=== PATIENT | male | born 1965 | race Caucasian/White ===

== ENCOUNTER 2018-04-27 23:22 | Inpatient (IN) ==
[2018-04-27] MEDS ORDERED: SOLU-MEDROL IV ONE (23:54)
[2018-04-27] MEDS ORDERED: DUONEB (A & A) INH ONE (23:54)
[2018-04-28 00:29] LABS: BASO# 0.02 X1000 (0.0-0.2); BASO% 0.2 % (0.0-0.8); EOS# 0.32 X1000 (0.0-0.7); EOS% 2.5 % (0.0-10.0); HEMATOCRIT 45.2 % (42.0-52.0); HEMOGLOBIN 15.2 g/dL (14.0-18.0); IMM GRAN# 0.06 X1000 (0.0-0.04); IMM GRAN% 0.5 % (0.0-0.5); LYMPH# 0.96 X1000 (1.2-3.4); LYMPH% 7.6 % (20.5-51.1); MCH 30.5 PG (27-31); MCHC 33.6 g/dL (33-37); MCV 90.6 FL (81-99); MONO# 1.77 X1000 (0.11-0.59); MONO% 14.1 % (1.7-9.3); MPV 10.5 FL (7.4-10.4); NEUT# 9.44 X1000 (1.4-6.5); NEUT% 75.1 % (42.2-75.2); PLT 167 X1000 (130-400); RBC 4.99 XMIL (4.7-6.1); RDW 13.4 % (11.5-14.5); WBC 12.57 X1000 (4.8-10.8)
[2018-04-28 00:37] LABS: AGAP 13; ALB/GLOB RATIO 1.1; ALBUMIN 3.8 g/dL (3.5-5.0); ALKALINE PHOSPHATASE 74 U/L (32-122); BUN 8 mg/dL (8-22); CALCIUM 8.6 mg/dL (8.8-10.2); CHLORIDE 93 mmol/L (98-107); CK PROFILE 98 U/L (24-204); COSMO 260; CREATININE 0.8 mg/dL (0.7-1.2); ESTIMATED GFR > 60; GLUCOSE 121 mg/dL (70-104); GOT 15 U/L (10-34); GPT 13 U/L (10-44); POTASSIUM 3.8 mmol/L (3.5-5.1); SODIUM 130 mmol/L (136-145); TCO2 24 mmol/L (25-35); TOTAL BILIRUBIN 0.68 mg/dL (0.20-1.00); TOTAL PROTEIN 7.3 g/dL (6.3-8.3)
[2018-04-28 01:22] LABS: ALLEN TEST YES; BE 1.7 mmoll (-3.0-3.0); BLOOD TYPE ARTERIAL; HCO3-(ACT) 25.9 mmoll (20.0-26.0); METHB 0.6 % (0.0-1.5); O2(CT) 18.6 mL/dL (15.0-23.0); PCO2(98.6) 38 mmHg (35-45); SAMPLE BLOOD; SAO2 87.4 % (95.0-100.0); THB 15.6 g/dL (11.5-17.4); pH(98.6) 7.44 (7.35-7.45)
[2018-04-28 01:23] LABS: MODALITY ROOM AIR
[2018-04-28 01:24] LABS: O2HB 85.1 % (95.0-99.0); PO2(98.6) 46 mmHg (60-100)
--- NOTE | 2018-04-28 01:39 | PROVIDER DOCUMENTATION ---
This chart was entered by Bebe Castillo Scribe, acting as scribe for Nikolai Choi MD. HPI-Respiratory General - General Chief Complaint: Shortness of Breath Stated Complaint: SOB Time Seen by Provider: 04/27/18 23:39 Source: patient Allergies/Adverse Reactions: Patient Allergies Allergy/AdvReac Type Severity Reaction Status Date / Time No Known Allergies Allergy Verified 04/27/18 23:49 Home Medications: Home Medication List Medication Instructions Recorded Confirmed Last Taken Type Cyclobenzaprine HCl [Flexeril] 10 mg PO BID 11/17/12 04/28/18 04/27/18 18:00 History Albuterol Sulfate [Ventolin Hfa] 2 puff IH Q4H PRN PRN 02/18/14 04/28/18 17:00 History Hydrocodone/Acetaminophen [[place] 1 each PO TID 02/18/14 04/28/18 04/27/18 20:00 History 10-325 Tablet] Albuterol [Albuterol Neb] 2.5 mg INH BID 04/28/18 04/28/18 04/27/18 21:00 History Gabapentin 400 mg PO TID 04/28/18 04/28/18 04/26/18 History - History of Present Illness-Resp Nature of Presenting Problem: pt is a 52 yr old male presenting via EMS with 3 day complaint of increased shortness of breath, no improvement with breathing treatments. pt admits cough with green sputum. Quality of Pain: reports: none Severity in ED: reports: moderate Onset/Duration: reports: 3 days ago Timing: reports: getting worse Exposure: reports: unknown cause Cough Quality/Degree: reports: moderate, productive cough, sputum (green) Episode Frequency: frequent episodes Current Respiratory Medication Therapy: Initiated A/A nebulizer (no improvement) Modifying Factors: worse with: albuterol nebulizer Associated Symptoms: reports: cough, shortness of breath. denies: flu-like symptoms Similar Symptoms Previously?: Yes Recently seen or treated by another doctor?: Yes Review of Systems - Adult - REVIEW OF SYSTEMS - ADULT Constitutional: denies: chills, fever Eyes: reports: no symptoms reported Ears, Nose, Mouth & Throat: denies: ear pain, sinus problem, throat pain Cardiovascular: denies: chest pain, palpitations, syncope Respiratory: reports: cough, shortness of breath, wheezing Gastrointestinal: denies: diarrhea, vomiting Genitourinary: reports: no symptoms reported Musculoskeletal: reports: no symptoms reported Integumentary: reports: no symptoms reported Neurological: denies: dizziness/vertigo, headache/migraines Psychiatric: reports: no symptoms reported Endocrine: reports: no symptoms reported Hematologic/Lymphatic: reports: no symptoms reported Allergic/Immunologic: reports: no symptoms reported All Other Systems: Reviewed and Negative Past History - Adult - PAST MEDICAL HISTORY-ADULT Review of Records: reports: Old Records Reviewed, Nursing Assessment Review, Medications Reviewed, Social history reviewed & non-contributory. Major Childhood Illnesses: reports: denies history Cardiovascular: reports: denies history Respiratory: reports: asthma, COPD Gastrointestinal: reports: denies history Obstetrical/Gynecological: reports: denies history Genitourinary: reports: denies history Musculoskeletal: reports: fibromyalgia, other (herniated disc, spinal stenosis) Neurological: reports: denies history Psychiatric: reports: anxiety Endocrine/Immune: reports: denies history Other Conditions: reports: denies history - PRIOR SURGERIES/PROCEDURES Surgical/Procedure History: reports: orthopedic (extremity) (shoulder, knee), joint replacement (shoulder Sx), back/neck, other (ACDF) - IMMUNIZATION STATUS Childhood Immunizations: NUTD, See Nurse Assessment Flu Vaccine: See Nurse Assessment - FAMILY HISTORY Family History: reviewed, not pertinent - SOCIAL HISTORY Smoking: cigarettes Provider spent 3-5 mins advising pt. on dangers of tobacco.: Discussed manners to quit use, and f/u contacts for add'l counseling. Substance Use: denies Living Situation: alone Physical Exam-General - PHYSICAL EXAM-ADULT Initial Vital Signs Reviewed: Yes - CONSTITUTIONAL General Appearance: severe distress - EYES Eyes: PERRL/EOMI - HEAD, EARS, NOSE, MOUTH & THROAT HENMT: normocephalic/atraumatic, moist mucous membranes - NECK Neck: non-tender, full range of motion, supple, normal inspection - RESPIRATORY Respiratory: chest non-tender, respiratory distress (moderate), accessory muscle use, rhonchi (wheezing), wheezing (diffuse), prolonged expiration, increased rate - CARDIOVASCULAR Cardiovascular: normal peripheral pulses, tachycardia - GASTROINTESTINAL (ABDOMEN) Abdominal Exam: normal bowel sounds, non tender, soft - LYMPHATIC Lymphatic: no adenopathy - MUSCULOSKELETAL Back Exam: normal inspection, no CVA tenderness, no vertebral tenderness Extremity: normal range of motion, non-tender, normal gait, normal inspection - SKIN Integumentary: normal color, normal turgor, warm/dry - NEUROLOGIC Neurologic: grossly normal, no motor/sensory deficits - PSYCHIATRIC Psych/Mental Status: normal mood/affect, normal thought content, normal thought process, oriented x 3 Progress - PLAN OF CARE/RESULTS Progress/Plan/Lab Results: Vital Signs - 8 hr 04/27/18 23:28 04/27/18 23:30 04/27/18 23:40 Temperature 98.9 F Pulse Rate 104 H Respiratory Rate 28 H Blood Pressure 147/100 O2 Sat by Pulse Oximetry 88 L 90 L 91 L 04/27/18 23:50 04/28/18 00:00 04/28/18 00:02 Temperature Pulse Rate 103 H 103 H 104 H Respiratory Rate 26 H 24 25 H Blood Pressure 150/86 O2 Sat by Pulse Oximetry 93 L 91 L 94 L 04/28/18 00:10 04/28/18 00:20 04/28/18 00:30 Temperature Pulse Rate 102 H 108 H 105 H Respiratory Rate 31 H 26 H 30 H Blood Pressure 134/74 O2 Sat by Pulse Oximetry 93 L 93 L 94 L 04/28/18 00:32 04/28/18 00:53 Temperature Pulse Rate 105 H 99 H Respiratory Rate 27 H 20 Blood Pressure 134/74 O2 Sat by Pulse Oximetry 93 L 93 L 04/28/18 00:27 Influenza Screen - Final Nasopharyngeal Laboratory Results - last 24 hr 04/27/18 04/27/18 04/27/18 23:35 23:35 23:35 WBC 12.57 H RBC 4.99 Hgb 15.2 Hct 45.2 MCV 90.6 MCH 30.5 MCHC 33.6 RDW Std Deviation 13.4 Plt Count 167 MPV 10.5 H Immature Gran % (Auto) 0.5 Neut % (Auto) 75.1 Lymph % (Auto) 7.6 L [place] % (Auto) 14.1 H Eos % (Auto) 2.5 Baso % (Auto) 0.2 Immature Gran # (Auto) 0.06 H Neut # (Auto) 9.44 H Lymph # (Auto) 0.96 L [place] # (Auto) 1.77 H Eos # (Auto) 0.32 Baso # (Auto) 0.02 Specimen Type Sample Site pH pCO2 pO2 HCO3 Base Excess Oxyhemoglobin ABG O2 Sat (Calculated) ABG O2 Saturation ABG Carboxyhemoglobin ABG Methemoglobin Nahid Test A-a O2 Difference Total Hemoglobin Lactate Blood Gas Modality FiO2 % Sodium 130 L Potassium 3.8 Chloride 93 L Carbon Dioxide 24 L Anion Gap 13 BUN 8 Creatinine 0.8 Estimated GFR/1.73 m2 > 60 BUN/Creatinine Ratio 10 Glucose 121 H Calculated Osmolality 260 Calcium 8.6 L Total Bilirubin 0.68 AST 15 ALT 13 Alkaline Phosphatase 74 Creatine Kinase 98 Troponin T Gnj-G-Rmniftyvwfb Pept Total Protein 7.3 Albumin 3.8 Globulin 3.5 Albumin/Globulin Ratio 1.1 Plasma Lactate 0.9 04/27/18 04/27/18 04/28/18 23:35 23:35 00:46 WBC RBC Hgb Hct MCV MCH MCHC RDW Std Deviation Plt Count MPV Immature Gran % (Auto) Neut % (Auto) Lymph % (Auto) [place] % (Auto) Eos % (Auto) Baso % (Auto) Immature Gran # (Auto) Neut # (Auto) Lymph # (Auto) [place] # (Auto) Eos # (Auto) Baso # (Auto) Specimen Type ARTERIAL Sample Site R RADIAL pH 7.44 pCO2 38 pO2 46 L* HCO3 25.9 Base Excess 1.7 Oxyhemoglobin 85.1 L* ABG O2 Sat (Calculated) 18.6 ABG O2 Saturation 87.4 L ABG Carboxyhemoglobin 1.90 ABG Methemoglobin 0.6 Nahid Test YES A-a O2 Difference 56.0 Total Hemoglobin 15.6 Lactate 1.00 Blood Gas Modality ROOM AIR FiO2 % 21.0 Sodium Potassium Chloride Carbon Dioxide Anion Gap BUN Creatinine Estimated GFR/1.73 m2 BUN/Creatinine Ratio Glucose Calculated Osmolality Calcium Total Bilirubin AST ALT Alkaline Phosphatase Creatine Kinase Troponin T < 0.010 Wrv-A-Tbzpcyyaddu Pept 95 Total Protein Albumin Globulin Albumin/Globulin Ratio Plasma Lactate Orders Category Date Time Status CHEST-PORTABLE [RAD] Stat Exams 04/27/18 23:54 Taken ABG [RESP] Routine Lab 04/28/18 00:46 Completed BLOOD CULTURE [BLDCUL] Stat Lab 04/28/18 00:35 Results CBC WITH ELECTRONIC DIFF [HEME] Stat Lab 04/28/18 00:01 Completed CK PROFILE [SP CHEM] Stat Lab 04/28/18 00:01 Completed COMPREHENSIVE METABOLIC PANEL [CHEM] Stat Lab 04/28/18 00:01 Completed INFLUENZA SCREEN A/B Stat Lab 04/28/18 00:27 Completed LACTATE, PLASMA [CHEM] Stat Lab 04/28/18 00:01 Completed PRO B-NATRIURETIC PEPTIDE Stat Lab 04/28/18 00:01 Completed SPUTUM CULTURE WITH GRAM STAIN [RM] Routine Lab 04/28/18 01:17 Ordered TROPONIN T Stat Lab 04/28/18 00:01 Completed Albuterol 2.5MG/Ipratrop 0.5MG [Duoneb (A & A)] Med 04/27/18 23:54 Discontinued 3 ml INH NOW ONE Methylprednisolone Sod Succ [Solu-Medrol] Med 04/27/18 23:54 Discontinued 125 mg IV NOW ONE Aerosol Treatments Routine Oth 04/27/18 23:54 Completed Aerosol Treatments Stat Oth 04/27/18 23:54 Completed Result Diagrams: 04/27/18 23:35 04/27/18 23:35 - EKG 1 Time of EKG reading by physician:: 23:32 EKG Read and Signed by:: Nikolai Choi EKG Interpretation (*Must complete 3 of following elements*): Abnormal Rate: 105 Rhythm: non specific t wave abnormality [place]: normal QRS: normal CO Interval: normal - XRAY 1 XRAY Study: Chest Impression: Abnormal (hyperexpanded lung restrepo; perihilar opacities) - CONSULTS/PCP/HOSPITALIST Notification #1 *Consult/PCP/Hospitalist*: Dr. Gilliland Time Discussed: 01:38 Consult Disposition: Admit Departure - Departure Date of Disposition Decision: 04/28/18 Time of Disposition Decision: 01:39 DIAGNOSIS: COPD exacerbation Acute respiratory failure Qualifiers: Respiratory failure complication: hypoxia Qualified Code(s): J96.01 - Acute respiratory failure with hypoxia Disposition: ADMITTED INPATIENT 09 Certified Medical Emergency: Emergent Condition: Critical Referrals and Follow-Ups: Hero Pablo MD [Primary Care Provider] - - Critical Care Note This patient required my direct & personal management of CC.: Yes Total Time (mins): 45 Critical Care Statement: This patient required my direct personal management to treat or rule out processes, the absence of which, could potentiallly result in sudden, clinically significant life or limb threatening deterioration. Attestation - Physician/ NBA Attestation The physician spent face to face time with patient:: Yes Advanced Practice Provider documentation review:: Supervising physician onsite and consulted in the evaluation and care of this patient. The physician did have a face to face encounter with the patient. This chart was documented by the indicated scribe, (Bebe Castillo Scribe) and accurately reflects the services I performed and decisions made by , Nikolai Choi MD, as attested by the provider's signature.
--- NOTE | 2018-04-28 02:45 | HISTORY AND PHYSICAL ---
PRIMARY CARE PHYSICIAN: Dr. Pablo. CHIEF COMPLAINT: Shortness of breath and cough x3 days. HISTORY OF PRESENTING ILLNESS: A 52-year-old male with a history of COPD and chronic low back pain had presented to emergency department with 3 days history of having cough and shortness of breath. The patient states that the cough was not productive and he was getting more short of breath. He states that he was having difficulty breathing. Subsequently had come to the emergency department. In the ED, he was evaluated. He was started on nebulizer treatment and also put on supplemental oxygen. He had some improvement. However, he continued to have coughing spells and was having difficulty breathing. Due to his presenting symptoms, he will need admission for further management. At the time of my examination, patient had denied any headache, fever, chills, chest pain, hemoptysis, melena or weight changes, but complained of shortness of breath and coughing. PAST MEDICAL HISTORY: COPD and back surgery, chronic back pain. PAST SURGICAL HISTORY: Back surgery. ALLERGIES: No known drug allergies. CURRENT MEDICATIONS: As listed in the medication reconciliation sheet. SOCIAL HISTORY: He is a former smoker. Denies any history of alcohol or illicit drug use. FAMILY HISTORY: No history of coronary artery disease. REVIEW OF SYSTEMS: Fourteen point review of systems as listed in HPI. Other systems negative. PHYSICAL EXAMINATION: GENERAL: Cooperative, friendly male. He is resting more comfortably now. VITAL SIGNS: Temperature 98.2 degrees, pulse 120, respirations 26, blood pressure 126/82. He is saturating 92% on 4 L. HEENT: Atraumatic, normocephalic. Extraocular movements intact. PERRLA. NECK: No masses. CHEST: Rhonchi. CARDIOVASCULAR: Regular rate and rhythm. ABDOMEN: Soft, positive bowel sounds. EXTREMITIES: No edema. NEUROLOGIC: He is awake, alert, oriented x3. GENITOURINARY: No bladder distention. SKIN: Warm. LABORATORIES AND STUDIES: WBC 12.57, hemoglobin 15.2, hematocrit 45.2, platelets 167,000. Sodium 130, potassium 3.8, chloride 93, CO2 is 24, BUN is 8, creatinine 3.4 glucose 121. ASSESSMENT: A 52-year-old male with a history of chronic obstructive pulmonary disease and chronic low back pain that presented to the emergency department with 3 days history of having worsening shortness of breath and cough. He was evaluated in the emergency department. Due to his presenting symptoms, he will need admission for further management. 1. Chronic obstructive pulmonary disease exacerbation. 2. Chronic low back pain. PLAN: 1. We will admit patient to medical floor with telemetry. 2. Continue with DuoNebs, IV Solu-Medrol, and IV antibiotics. 3. Give patient adequate pain control. 4. Put patient on DVT prophylaxis with SCD. 5. Continue to follow, and reassess and make further recommendations based on patient's clinical course. cc: Mehdi Gilliland MD MTDD
--- NOTE | 2018-04-28 05:47 | Diag Imaging Result Doc PS360 ---
EXAM: CHEST-PORTABLE HISTORY: shortness of breath TECHNIQUE: Chest single view COMPARISON: 03/30/2017 FINDINGS: The lungs are hyperexpanded. The heart is not enlarged. The vessels are borderline mildly distended. There are no infiltrates. No effusion identified. There has been surgery to the lower neck IMPRESSION: Emphysema with borderline mild vascular distention. Electronically signed by Schuyler Syed 04/28/2018 5:44 AM
[2018-04-28] MEDS: LEVAQUIN 500 MG/D5W 500 MG/100 ML IVPB IV SCH (06:26)
[2018-04-28] MEDS: SOLU-MEDROL IV SCH ×3 (06:29→20:57)
[2018-04-28] MEDS: DUONEB (A & A) INH SCH ×5 (07:57→23:14)
[2018-04-28] MEDS: NEURONTIN PO SCH ×3 (08:44→17:57)
[2018-04-28] MEDS: FLEXERIL PO SCH ×2 (08:44→20:57)
[2018-04-28] MEDS: NORCO-10 PO SCH ×3 (08:45→17:57)
--- NOTE | 2018-04-28 10:58 | EKG Report ---
Test Performed on : 04/27/2018 11:32:06 PM Test Reason : NO EKG ORDER FOR MUSE Blood Pressure : / mmHG Vent. Rate : 105 BPM Atrial Rate : 105 BPM P-R Int : 130 ms QRS Dur : 098 ms QT Int : 356 ms P-R-T Axes : 078 -20 092 degrees QTc Int : 470 ms Sinus tachycardia. Nonspecific T wave abnormality Abnormal ECG When compared with ECG of 20-APR-2018 17:36, (Unconfirmed) Nonspecific T wave abnormality no longer evident in Inferior leads Nonspecific T wave abnormality, worse in Lateral leads Unconfirmed Result
[2018-04-28] MEDS: MIRALAX PO SCH (15:46)
[2018-04-28] MEDS: DOXYCYCLINE 100 MG in NS 250 ML IV SCH (15:47)
[2018-04-28] MEDS: TUMS PO PRN (22:02)
[2018-04-29] MEDS: DOXYCYCLINE 100 MG in NS 250 ML IV SCH ×2 (01:23→13:03)
[2018-04-29] MEDS: TUMS PO PRN ×3 (01:37→20:08)
--- NOTE | 2018-04-29 01:44 | PULMONOLOGY CONSULTATION ---
DATE: 04/28/2018 REQUESTING PHYSICIAN: Dr. Baker. REASON FOR CONSULTATION: COPD and respiratory failure. HISTORY OF PRESENT ILLNESS: Mr. Miguel is a 52-year-old white male with a greater than 30 pack- year history for tobacco (he has continued to smoke 1 pack per day), who developed increased cough, increased congestion with progressive shortness of breath over the last 7 days. The patient denies fevers or chills. Sputum production is green in character. The patient reports he had asthma as a child, but clinically improved during his teenage years. He has had increased difficulty with his breathing over the last 10-12 years and has been on nebulizers during that time frame. The patient is disabled due to back pain and arthritis. The patient does have difficulty with pollen season, but has never undergone allergy testing. PAST MEDICAL HISTORY/PROBLEM LIST: 1. No known drug allergies. 2. Asthma/COPD with ongoing tobacco use. 3. Spinal fusion. 4. Avascular necrosis of the right hip. 5. Plantar fasciitis. 6. Bilateral knee arthritis. 7. Status post rotator cuff repair. SOCIAL HISTORY: The patient is disabled. Ongoing tobacco abuse as per above. No alcohol use. FAMILY HISTORY: Noncontributory to current presentation. REVIEW OF SYSTEMS: As noted in the HPI, but is otherwise negative. PHYSICAL EXAMINATION: General: Reveals a well-developed, well-nourished male who appears his stated age, in no distress. Vital Signs: BP 140/73, heart rate 84, respiratory rate 18, oxygen saturation 93% on nasal cannula. HEENT: Pupils are equal and reactive. Oropharynx is clear. Neck: Supple. Chest: Reveals diffuse wheezing bilaterally. Cardiac: S1, S2. Abdomen: Soft and without hepatosplenomegaly. Extremities: Without edema. LABORATORY DATA: Chest x-ray reveals hyperinflation with no acute infiltrates. White blood count is 12.57, hemoglobin is 15.2, platelet count is 167,000. No significant eosinophilia. Arterial blood gas in the emergency room, pH 7.44, pCO2 of 38, PO2 of 46. Sodium 130, potassium 3.8, chloride 93, bicarbonate 24, BUN 8, creatinine 0.8. IMPRESSION: The patient is a 52-year-old with asthma/chronic obstructive pulmonary disease overlap syndrome with a chronic obstructive pulmonary disease exacerbation. The patient continues to smoke. The patient has evidence of acute hypoxemic respiratory failure on presentation and continues to require oxygen. It is imperative that the patient stop smoking. RECOMMENDATIONS: 1. Agree with steroids, antibiotics and nebulizer therapy as you are doing for his acute exacerbation. 2. Continue oxygen for hypoxemic respiratory failure. 3. Strongly encourage the importance of smoking cessation at each clinical visit. 4. Recommend initiating an inhaled corticosteroid/long-acting beta agonist at the time of discharge. Symbicort 160/4.5 two puffs twice a day should be adequate for this patient. 5. Recommend outpatient PFT when he clinically is improved. 6. Additional recommendations pending hospital course. cc: Talat Chase MD
[2018-04-29] MEDS: DUONEB (A & A) INH SCH ×7 (03:21→23:23)
[2018-04-29] MEDS: LEVAQUIN 500 MG/D5W 500 MG/100 ML IVPB IV SCH (06:16)
[2018-04-29] MEDS: SOLU-MEDROL IV SCH ×3 (06:17→20:08)
[2018-04-29 07:42] LABS: AGAP 10; BUN 18 mg/dL (8-22); CALCIUM 8.6 mg/dL (8.8-10.2); CHLORIDE 95 mmol/L (98-107); COSMO 278; CREATININE 0.8 mg/dL (0.7-1.2); ESTIMATED GFR > 60; GLUCOSE 168 mg/dL (70-104); POTASSIUM 3.5 mmol/L (3.5-5.1); SODIUM 136 mmol/L (136-145); TCO2 31 mmol/L (25-35)
[2018-04-29 07:49] LABS: BASO# 0.01 X1000 (0.0-0.2); BASO% 0.1 % (0.0-0.8); HEMATOCRIT 40.7 % (42.0-52.0); HEMOGLOBIN 13.8 g/dL (14.0-18.0); IMM GRAN# 0.06 X1000 (0.0-0.04); IMM GRAN% 0.4 % (0.0-0.5); LYMPH# 0.53 X1000 (1.2-3.4); LYMPH% 3.7 % (20.5-51.1); MCH 30.9 PG (27-31); MCHC 33.9 g/dL (33-37); MCV 91.1 FL (81-99); MONO# 0.82 X1000 (0.11-0.59); MONO% 5.8 % (1.7-9.3); MPV 9.7 FL (7.4-10.4); PLT 230 X1000 (130-400); RBC 4.47 XMIL (4.7-6.1); RDW 13.5 % (11.5-14.5); WBC 14.22 X1000 (4.8-10.8)
[2018-04-29 07:50] LABS: BANDS 8 % (0-1); LYMPHS 4 % (21-51); MONO 2 % (1-9); SEGS 84 % (42-75)
[2018-04-29] MEDS: MIRALAX PO SCH (08:10)
[2018-04-29] MEDS: FLEXERIL PO SCH ×2 (08:10→20:08)
[2018-04-29] MEDS: NEURONTIN PO SCH ×3 (08:11→16:23)
[2018-04-29] MEDS: NORCO-10 PO SCH ×3 (08:11→16:22)
--- NOTE | 2018-04-29 12:38 | PROGRESS NOTE ---
DATE: 04/29/2018 SUBJECTIVE: The patient reports feeling better. Less shortness of breath. He reports going to the bathroom without oxygen and not feeling short of breath. OBJECTIVE: Vital signs: Temperature 97.5 degrees, heart rate 79, respiratory rate 18, blood pressure 113/67, O2 saturation 95% on 4 L nasal cannula. General examination: This is a chronically ill-looking, 52-year-old male lying in bed, in no acute distress. HEENT: Head is normocephalic, atraumatic. Neck: No JVD noted. No carotid bruit. Cardiovascular: S1, S2 heard. No murmurs, gallops, or rubs. Regular rate and rhythm. Respiratory: Decreased breath sounds with wheezing noted in both pulmonary bases. The patient is not using any accessory muscles or having work of breathing. Abdomen: Soft. Nontender to palpation. Bowel sounds present. No organomegaly. Extremities: No clubbing, cyanosis, or edema. Peripheral pulses present in both legs. Neurological: Patient is alert and oriented x3. Moves 4 extremities. LABORATORY DATA: White cell count 14.22, hemoglobin 13.8, hematocrit 40.7, platelets 230,000. Normal BMP. ASSESSMENT AND PLAN: 1. Acute respiratory failure secondary to chronic obstructive pulmonary disease exacerbation. At this point, patient continues to require 4 L of oxygen by nasal cannula. The patient is on DuoNeb every 4 hours scheduled. We will continue with the same management. The patient is on IV steroids, in this case it is 80 mg IV q.8 hours. I think at this point we will decrease the dose to 40 mg IV q.8 hours and we will continue with the same management. Currently patient is on levofloxacin and doxycycline. Will continue with the same medication. 2. Chronic low back pain. The patient is on a muscle relaxant, in this case Flexeril and also [place] 10 three times per day. We will continue with the same management. 3. Disposition. We will continue to monitor this patient closely. As soon as this patient starts feeling better without requiring any oxygen supplementation, I think this patient can go. cc: Rajiv Sheppard MD
[2018-04-29] MEDS: SYMBICORT 160/4.5 MICROGM INHALER INH SCH (20:03)
[2018-04-30] MEDS: DOXYCYCLINE 100 MG in NS 250 ML IV SCH (01:41)
[2018-04-30] MEDS: DUONEB (A & A) INH SCH ×3 (03:24→12:17)
--- NOTE | 2018-04-30 04:10 | PULMONOLOGY PROGRESS NOTE ---
DATE: 04/29/2018 SUBJECTIVE: The patient is awake and alert. He reports he is feeling better. He is ambulating some in the room without difficulty. OBJECTIVE: Vital Signs: The patient is afebrile. Blood pressure 117/65, heart rate 79, respiratory rate 18, oxygen saturation 94% on 4 L per nasal cannula. HEENT: Pupils are equal and reactive. Oropharynx is clear. Neck: Supple. Chest: Reveals prolonged expiratory phase with better air flow bilaterally. Cardiac: S1 and S2. Abdomen: Soft without hepatosplenomegaly. Extremities: Without edema. LABORATORIES: Sputum culture currently is growing normal kary. White blood count 14,000, hemoglobin 13.8, platelet count 230,000. IMPRESSION: The patient is a 52-year-old with asthma/chronic obstructive pulmonary disease exacerbation, ongoing tobacco use, acute hypoxemic respiratory failure. Clinically he continues to improve. RECOMMENDATIONS: 1. Initiate Symbicort 160/4.5 two puffs twice a day for patient education and to begin this therapy. 2. Continue steroids, antibiotics and nebulizer treatments. 3. Continue oxygen therapy and evaluate at the time of discharge. 4. Recommend outpatient PFT. 5. Strongly encourage the patient to discontinue tobacco use. cc: Talat Chase MD
[2018-04-30] MEDS: SOLU-MEDROL IV SCH ×2 (05:17→12:05)
[2018-04-30] MEDS: LEVAQUIN 500 MG/D5W 500 MG/100 ML IVPB IV SCH (05:17)
[2018-04-30 08:05] VITALS: BP 137/81
[2018-04-30] MEDS: MIRALAX PO SCH (08:08)
[2018-04-30] MEDS: NEURONTIN PO SCH ×2 (08:09→12:04)
[2018-04-30] MEDS: NORCO-10 PO SCH ×2 (08:09→12:04)
[2018-04-30] MEDS: FLEXERIL PO SCH (08:09)
[2018-04-30] MEDS: SYMBICORT 160/4.5 MICROGM INHALER INH SCH (12:16)
--- NOTE | 2018-05-01 17:30 | DISCHARGE SUMMARY ---
ADMISSION DATE: 04/28/2018 DISCHARGE DATE: 04/30/2018 DISCHARGE DIAGNOSES: 1. Acute respiratory failure, improved. 2. Chronic obstructive pulmonary disease exacerbation, improved. 3. Chronic low back pain. CONSULTATIONS: Dr. Talat Chase from Pulmonary. PROCEDURES: Chest x-ray done on admission showed emphysema with borderline mild vascular distention. HOSPITAL COURSE: This is a 52-year-old male with history of COPD and chronic low back pain who has presented to the emergency department with three-day history of having cough and shortness of breath that was getting worse. He was started in the ER with nebulizer treatment but considering that symptoms did not improve, it was decided to admit this patient for further evaluation and treatment. Here, he was kept on DuoNeb every four hours as scheduled and also he was given IV antibiotics in this case, Levaquin, and also he was placed on IV steroids as well. He started progressing day by day until at time of discharge the patient was able to walk around with oxygen supplementation, but did not get short of breath. So, he is going to be discharged today. Home oxygen is going to be arranged for him. He will be seen by primary care doctor in a week. DISCHARGE PHYSICAL EXAMINATION: Vital Signs: Temperature 97.6, heart rate 92, respiratory rate 21, blood pressure 135/81, and O2 saturation 96% on 4 L nasal cannula. General: This is a 52- year-old male, lying in bed, in no acute distress. HEENT: Head is normocephalic, atraumatic. Cardiovascular: S1 and S2 heard. No murmurs, gallops, or rubs. Regular rate and rhythm. Respiratory: Decreased breath sounds globally with minimal wheezing in both pulmonary bases. The patient is not using any accessory muscles or current work of breathing noted. Abdomen: Soft, nontender to palpation. Bowel sounds present. No organomegaly. Extremities: No clubbing, cyanosis, or edema. Peripheral pulses present in both legs. Neurological: The patient alert and oriented x3. Moves four extremities. DISCHARGE DISPOSITION: Home to self-care. LIST OF MEDICATIONS: 1. Azithromycin one tablet 500 mg p.o. daily for three days. 2. Symbicort 160/4.5 mcg two puffs by inhalation twice daily. 3. Medrol Dosepak 4 mg one tablet p.o. as scheduled. 4. MiraLAX one pack p.o. daily as needed. 5. DuoNeb one inhalation every four hours as needed. 6. Flexeril 10 mg p.o. b.i.d. 7. [place] 10 one tablet p.o. every eight hours as needed. 8. Gabapentin 400 mg tablet p.o. b.i.d. cc: Rajiv Sheppard MD
== END 2018-04-30 13:29 | disposition home or self-care (01) | DRG 189 ==
LOC: SUPCPDRO → ED 23:22 → SUATTDRO 04-28 03:04 → 3N 04-28 03:04
PROVIDERS: ATTEND Internal Medicine
CPT/HCPCS: 71010; 71045; 80048; 80053; 82550; 82805; 83605; 83880; 84484; 85025; 87040; 87070; 87205; 87275; 87276; 87804; 89220; 93005; 94640; 94761; 94799; 96374; 99285; 99291; A9270; J1956; J2920; J2930; J7050

== ENCOUNTER 2019-05-05 22:07 | Inpatient (IN) ==
[2019-05-05] MEDS ORDERED: PULMICORT INH ONE (22:37)
[2019-05-05] MEDS ORDERED: DUONEB (A & A) INH ONE (22:37)
[2019-05-05] MEDS ORDERED: SOLU-MEDROL IV ONE (22:37)
--- NOTE | 2019-05-05 23:17 | PROVIDER DOCUMENTATION ---
This chart was entered by Marivel Cortes Scribe, acting as scribe for Tarah Navas MD. HPI-Respiratory General - General Stated Complaint: SOB Time Seen by Provider: 05/05/19 22:25 Source: patient Allergies/Adverse Reactions: Patient Allergies Allergy/AdvReac Type Severity Reaction Status Date / Time No Known Allergies Allergy Verified 05/03/18 05:07 Home Medications: Home Medication List Medication Instructions Recorded Confirmed Last Taken Type Hydrocodone/Acetaminophen [[place] 1 each PO TID 02/18/14 05/05/19 05/05/19 19:00 History 10-325 Tablet] Gabapentin 400 mg PO TID 04/28/18 05/05/19 05/04/19 21:00 History Albuterol 2.5MG/Ipratrop 0.5MG 3 ml INH Q4H PRN PRN #25 neb 04/30/18 05/05/19 05/02/19 12:00 Rx [Duoneb (A & A)] Albuterol Sulfate [Proair Hfa] 2 inh NEB Q4-6H PRN PRN 05/05/19 05/05/19 05/05/19 22:00 History - History of Present Illness-Resp Nature of Presenting Problem: Pt is a 53 yom who presents to the ED via ems with a cc of sob. Pt states that he has been sob for the past wk. Pt reports intermittent chest tightness, dyspnea on exertion, and diaphoresis. Pt denies any hx of cardiac issues. Pt states that he takes breathing treatments and oxygen at home but he recently ran out of oxygen. EMS reports that the pt was anxious upon their arrival with sats 79-80% on room air. Pt was given treatment via ems quality assurance advisor. Pt reports that he is a smoker. Pt does not present to the ED with any other complaints. Quality of Pain: reports: tightness (chest) Onset/Duration: reports: 1 week ago Timing: reports: still present Exposure: reports: unknown cause Cough Quality/Degree: reports: mild Episode Frequency: frequent episodes Current Respiratory Medication Therapy: Initiated see nurses note, Initiated albuterol Modifying Factors: improves with: exertion (worsens), albuterol nebulizer Associated Symptoms: reports: cough, shortness of breath, wheezing Similar Symptoms Previously?: Yes Recently seen or treated by another doctor?: Yes Review of Systems - Adult - REVIEW OF SYSTEMS - ADULT Constitutional: reports: see HPI, other (diaphoresis) Eyes: reports: no symptoms reported Ears, Nose, Mouth & Throat: reports: no symptoms reported Cardiovascular: reports: no symptoms reported Respiratory: reports: see HPI, cough, dyspnea on exertion, shortness of breath, wheezing Gastrointestinal: reports: no symptoms reported Genitourinary: reports: no symptoms reported Musculoskeletal: reports: no symptoms reported Integumentary: reports: no symptoms reported Neurological: reports: no symptoms reported Psychiatric: reports: no symptoms reported Endocrine: reports: no symptoms reported Hematologic/Lymphatic: reports: no symptoms reported Allergic/Immunologic: reports: no symptoms reported All Other Systems: Reviewed and Negative Past History - Adult - PAST MEDICAL HISTORY-ADULT Review of Records: reports: Old Records Reviewed, Medications Reviewed Major Childhood Illnesses: reports: denies history Cardiovascular: reports: denies history Respiratory: reports: asthma, COPD Gastrointestinal: reports: denies history Obstetrical/Gynecological: reports: denies history Genitourinary: reports: denies history Musculoskeletal: reports: fibromyalgia, other (herniated disc, spinal stenosis) Neurological: reports: denies history Psychiatric: reports: anxiety Endocrine/Immune: reports: denies history Other Conditions: reports: denies history - PRIOR SURGERIES/PROCEDURES Surgical/Procedure History: reports: orthopedic (extremity) (shoulder, knee), joint replacement (shoulder Sx), back/neck, other (ACDF) - IMMUNIZATION STATUS Childhood Immunizations: NUTD, See Nurse Assessment Flu Vaccine: See Nurse Assessment - FAMILY HISTORY Family History: reviewed, not pertinent - SOCIAL HISTORY Smoking: cigarettes, less than 1 pack/day Provider spent 3-5 mins advising pt. on dangers of tobacco.: Discussed manners to quit use, and f/u contacts for add'l counseling. Substance Use: denies Living Situation: family Physical Exam-General - PHYSICAL EXAM-ADULT Initial Vital Signs Reviewed: Yes - CONSTITUTIONAL General Appearance: alert, moderate distress - EYES Eyes: PERRL/EOMI, pink conjunctivae - HEAD, EARS, NOSE, MOUTH & THROAT HENMT: normocephalic/atraumatic - NECK Neck: normal inspection - RESPIRATORY Respiratory: chest non-tender, respiratory distress, decreased breath sounds, accessory muscle use, wheezing (diffused), increased rate, other (SOB). negative: lungs clear, normal breath sounds (tachypnea) - CARDIOVASCULAR Cardiovascular: normal peripheral pulses, no murmur, tachycardia - GASTROINTESTINAL (ABDOMEN) Abdominal Exam: normal bowel sounds, non tender, soft - MUSCULOSKELETAL Back Exam: normal inspection Extremity: normal inspection - SKIN Integumentary: normal color, normal turgor, warm/dry. negative: ecchymosis - NEUROLOGIC Neurologic: grossly normal - PSYCHIATRIC Psych/Mental Status: normal mood/affect, normal thought content, normal thought process, oriented x 3 Progress - PLAN OF CARE/RESULTS Progress/Plan/Lab Results: Vital Signs - 8 hr 05/05/19 22:46 05/05/19 23:03 Temperature 98.3 F Pulse Rate 94 H 100 H Respiratory Rate 22 16 Blood Pressure 117/90 O2 Sat by Pulse Oximetry 93 L 93 L Laboratory Results - last 24 hr 05/05/19 05/05/19 05/05/19 23:08 23:08 23:08 WBC 5.64 RBC 5.11 Hgb 16.1 Hct 48.5 MCV 94.9 MCH 31.5 H MCHC 33.2 RDW Std Deviation 14.1 Plt Count 176 MPV 9.8 Immature Gran % (Auto) 0.0 Neut % (Auto) 58.0 Lymph % (Auto) 27.1 [place] % (Auto) 10.8 H Eos % (Auto) 3.4 Baso % (Auto) 0.7 Immature Gran # (Auto) 0.00 Neut # (Auto) 3.27 Lymph # (Auto) 1.53 [place] # (Auto) 0.61 H Eos # (Auto) 0.19 Baso # (Auto) 0.04 PT INR PTT (Actin FS) Specimen Type Sample Site pH pCO2 pO2 HCO3 Base Excess Oxyhemoglobin ABG O2 Sat (Calculated) ABG O2 Saturation ABG Carboxyhemoglobin ABG Methemoglobin Nahid Test A-a O2 Difference Total Hemoglobin Lactate Liter Flow Blood Gas Modality FiO2 % Sodium 141 Potassium 4.2 Chloride 102 Carbon Dioxide 28 Anion Gap 11 BUN 12 Creatinine 1.3 H Estimated GFR/1.73 m2 58 BUN/Creatinine Ratio 9 Glucose 95 Calculated Osmolality 281 Calcium 9.0 Total Bilirubin 0.30 AST 21 ALT 14 Alkaline Phosphatase 45 Troponin T High Sens Qcz-G-Ckyxahhxlij Pept 191 H Total Protein 6.4 Albumin 4.2 Globulin 2.2 Albumin/Globulin Ratio 1.9 05/05/19 05/05/19 05/05/19 23:08 23:08 23:16 WBC RBC Hgb Hct MCV MCH MCHC RDW Std Deviation Plt Count MPV Immature Gran % (Auto) Neut % (Auto) Lymph % (Auto) [place] % (Auto) Eos % (Auto) Baso % (Auto) Immature Gran # (Auto) Neut # (Auto) Lymph # (Auto) [place] # (Auto) Eos # (Auto) Baso # (Auto) PT 13.0 INR 0.97 PTT (Actin FS) 35.0 Specimen Type ARTERIAL Sample Site R RADIAL pH 7.34 L pCO2 51 H* pO2 69 HCO3 25.2 Base Excess 0.6 Oxyhemoglobin 91.7 L ABG O2 Sat (Calculated) 21.2 ABG O2 Saturation 95.3 ABG Carboxyhemoglobin 2.80 H ABG Methemoglobin 0.9 Nahdi Test YES A-a O2 Difference 124.0 Total Hemoglobin 16.5 Lactate 0.90 Liter Flow 4.0 Blood Gas Modality [place] FiO2 % 36.0 Sodium Potassium Chloride Carbon Dioxide Anion Gap BUN Creatinine Estimated GFR/1.73 m2 BUN/Creatinine Ratio Glucose Calculated Osmolality Calcium Total Bilirubin AST ALT Alkaline Phosphatase Troponin T High Sens 12 Vtl-I-Tgrnmoynfty Pept Total Protein Albumin Globulin Albumin/Globulin Ratio Orders Category Date Time Status Admit - [facility] Routine AdmDCTranf 05/06/19 01:52 Active Bedrest [Activity Type] ORDERED Care 05/06/19 01:54 Active Use Oxygen.Protocol ORDERED Care 05/06/19 01:57 Active Vital Signs Order Q 4-HR ASSESS Care 05/06/19 01:54 Active Regular Diet Diet 05/06/19 01:54 Active CHEST-2 VIEWS [RAD] Stat Exams 05/05/19 22:36 Taken ABG [RESP] Routine Lab 05/05/19 23:16 Completed CBC WITH DIFF [HEME] Stat Lab 05/05/19 23:08 Completed COMPREHENSIVE METABOLIC PANEL [CHEM] Stat Lab 05/05/19 23:08 Completed PRO B-NATRIURETIC PEPTIDE Stat Lab 05/05/19 23:08 Completed PROTIME WITH INR [COAG] Stat Lab 05/05/19 23:08 Completed PTT [COAG] Stat Lab 05/05/19 23:08 Completed TROPONIN T HIGH SENSITIVITY Stat Lab 05/05/19 23:08 Completed 0.9% Sodium Chloride Inj [Ns] 1,000 ml Med 05/06/19 02:00 Active IV 30 mls/hr Albuterol 2.5MG/Ipratrop 0.5MG [Duoneb (A & A)] Med 05/06/19 03:30 Active 3 ml INH RTQ4H Albuterol 2.5MG/Ipratrop 0.5MG [Duoneb (A & A)] Med 05/05/19 22:37 Discontinued 9 ml INH NOW ONE Budesonide [Pulmicort] Med 05/05/19 22:37 Discontinued 1 mg INH NOW ONE Enoxaparin [Lovenox] Med 05/07/19 09:00 Active 40 mg SUBQ Q24H Methylprednisolone Sod Succ [Solu-Medrol] Med 05/05/19 22:37 Discontinued 125 mg IV NOW ONE Methylprednisolone Sod Succ [Solu-Medrol] Med 05/06/19 08:00 Active 60 mg IV Q8H Omeprazole [Prilosec] Med 05/06/19 07:00 Active 40 mg PO DAILY@0700 Aerosol Treatments Routine Oth 05/05/19 22:37 Completed Aerosol Treatments Routine Oth 05/06/19 01:56 Active Aerosol Treatments Stat Oth 05/05/19 22:37 Completed Aerosol Treatments Stat Oth 05/06/19 01:56 Active EKG [EKG] Stat Ther 05/05/19 22:59 Ordered Transfer/Admit Order [TRANSFER] Routine Transfer 05/06/19 01:53 Ordered Patient received multiple breathing treatments in the ED and still at 3L NC at rest was only 92%. Will need admission as patient's O2 is out. Spoke to hospitalist precision assembly inspector who accepted patient for admission. Further orders to be placed by their team. Result Diagrams: 05/05/19 23:08 05/05/19 23:08 - EKG 1 Time of EKG reading by physician:: 23:02 EKG Read and Signed by:: Tarah Navas EKG Interpretation (*Must complete 3 of following elements*): Abnormal Rate: 82 Rhythm: NSR [place]: normal QRS: normal ST Wave: non-specific ST changes - XRAY 1 XRAY Study: Chest (COPD) - CONSULTS/PCP/HOSPITALIST Notification #1 *Consult/PCP/Hospitalist*: Hospitalist Time Discussed: :25 Consult Disposition: Admit Departure - Departure Date of Disposition Decision: 05/06/19 Time of Disposition Decision: 01:30 DIAGNOSIS: COPD exacerbation, Hypoxia, Cigarette smoker Disposition: ADMITTED INPATIENT 09 Certified Medical Emergency: Emergent Condition: Stable Referrals and Follow-Ups: None,PCP [Primary Care Provider] - - Critical Care Note This patient required my direct & personal management of CC.: Yes Total Time (mins): 35 Critical Care Statement: This patient required my direct personal management to treat or rule out processes, the absence of which, could potentiallly result in sudden, clinically significant life or limb threatening deterioration. Attestation - Physician/ NBA Attestation Patient care was provided by Advanced Practice Provider:: No The physician spent face to face time with patient:: Yes Advanced Practice Provider documentation review:: Supervising physician onsite and consulted in the evaluation and care of this patient. The physician did have a face to face encounter with the patient. This chart was documented by the indicated scribe, (Marivel Cortes Scribe) and accurately reflects the services I performed and decisions made by me, Tarah Navas MD, as attested by the provider's signature.
[2019-05-05 23:21] LABS: BASO# 0.04 X1000 (0.0-0.2); BASO% 0.7 % (0.0-0.8); EOS# 0.19 X1000 (0.0-0.7); EOS% 3.4 % (0.0-10.0); HEMATOCRIT 48.5 % (42.0-52.0); HEMOGLOBIN 16.1 g/dL (14.0-18.0); LYMPH# 1.53 X1000 (1.2-3.4); LYMPH% 27.1 % (20.5-51.1); MCH 31.5 PG (27-31); MCHC 33.2 g/dL (33-37); MCV 94.9 FL (81-99); MONO# 0.61 X1000 (0.11-0.59); MONO% 10.8 % (1.7-9.3); MPV 9.8 FL (7.4-10.4); NEUT# 3.27 X1000 (1.4-6.5); PLT 176 X1000 (130-400); RBC 5.11 XMIL (4.7-6.1); RDW 14.1 % (11.5-14.5); WBC 5.64 X1000 (4.8-10.8)
[2019-05-05 23:42] LABS: ALLEN TEST YES; BE 0.6 mmoll (-3.0-3.0); BLOOD TYPE ARTERIAL; HCO3-(ACT) 25.2 mmoll (20.0-26.0); METHB 0.9 % (0.0-1.5); O2(CT) 21.2 mL/dL (15.0-23.0); O2HB 91.7 % (95.0-99.0); PO2(98.6) 69 mmHg (60-100); SAMPLE BLOOD; SAO2 95.3 % (95.0-100.0); THB 16.5 g/dL (11.5-17.4); pH(98.6) 7.34 (7.35-7.45)
[2019-05-05 23:42] LABS: INR 0.97
[2019-05-05 23:43] LABS: MODALITY CANNULA
[2019-05-05 23:44] LABS: PCO2(98.6) 51 mmHg (35-45)
[2019-05-05 23:52] LABS: ALB/GLOB RATIO 1.9; ALBUMIN 4.2 g/dL (3.5-5.0); CREATININE 1.3 mg/dL (0.7-1.2); POTASSIUM 4.2 mmol/L (3.5-5.1); TOTAL BILIRUBIN 0.3 mg/dL (0.20-1.00); TOTAL PROTEIN 6.4 g/dL (6.3-8.3)
[2019-05-06] MEDS ORDERED: NS 1,000 ML IV SCH (02:00)
[2019-05-06] MEDS: DUONEB (A & A) INH SCH ×6 (03:45→23:24)
--- NOTE | 2019-05-06 05:42 | EKG Report ---
Test Performed on : 05/05/2019 11:00:16 PM Test Reason : sob Blood Pressure : / mmHG Vent. Rate : 082 BPM Atrial Rate : 082 BPM P-R Int : 154 ms QRS Dur : 098 ms QT Int : 384 ms P-R-T Axes : 084 067 059 degrees QTc Int : 448 ms Normal sinus rhythm. Cannot rule out Anterior infarct (cited on or before 19-JAN-2019) Abnormal ECG When compared with ECG of 19-JAN-2019 13:59, QRS axis shifted right Nonspecific T wave abnormality no longer evident in Inferior leads Unconfirmed Result
--- NOTE | 2019-05-06 06:23 | Diag Imaging Result Doc PS360 ---
CHEST-2 VIEWS - 05/05/2019 INDICATION: COPD COMPARISON: 01/19/2019 FINDINGS: There is advanced COPD. No infiltrates or edema. No pneumothorax or pleural effusion. Heart size is normal. IMPRESSION: COPD. Electronically signed by Pelon Cornell 05/06/2019 6:21 AM
[2019-05-06] MEDS ORDERED: LEVAQUIN PO SCH (09:00)
--- NOTE | 2019-05-06 09:09 | HISTORY AND PHYSICAL ---
CHIEF COMPLAINT: Worsening shortness of breath. HISTORY OF PRESENT ILLNESS: Mr. Jourdan Miguel is a 51-year-old male who has a history of COPD, as well as long-term tobacco use. He presents to the hospital because of worsening shortness of breath, which has been only for about the last 3 to 4 days. He also describes cough productive of whitish sputum, associated with wheezing. He denies any hemoptysis. The patient smokes about a half a pack of cigarettes per day, and has been doing this for at least 30 years. On presenting to the hospital, x-ray of the chest showed evidence of COPD. The patient will now be admitted to the floor for further management. PAST MEDICAL HISTORY: COPD, as well as chronic back pain. SOCIAL HISTORY: The patient smokes cigarettes and drinks alcohol. ALLERGIES: No known drug allergies. FAMILY HISTORY: Positive for heart disease. PAST SURGICAL HISTORY: He has had back surgery, surgery in both knees, as well as right shoulder. MEDICATIONS: Include the following: Albuterol/ipratropium 3 mL every 4 hours p.r.n., ProAir HFA 2 inhalations every 4 to 6 hours p.r.n., gabapentin 400 mg p.o. 3 times a day, hydrocodone/acetaminophen 10/325 three times a day. REVIEW OF SYSTEMS: Constitutional: No fever. 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 Eyes: Uses glasses. ENT: Has sinus problems. Cardiovascular: Chest pain. Gastrointestinal: Has abdominal pains. No nausea, vomiting, diarrhea. : Has dysuria. Dermatology: No skin lesions. Hematology: No bleeding problems. Musculoskeletal: Has joint pains. Endocrinology: No thyroid disease or diabetes. Psychiatry: Has anxiety with depression. Allergic/Immunologic: Has symptoms suggestive of allergic rhinitis. PHYSICAL EXAMINATION: VITAL SIGNS: Temperature is 98.3 degrees, pulse is 94, respirations 22, blood pressure is 117/90, oxygen saturation is 93%. HEENT: Atraumatic, normocephalic. He is anicteric. Extraocular movements intact. No oral lesions noted. NECK: No lymphadenopathy or thyromegaly. CARDIOVASCULAR: S1, S2. RESPIRATORY: Has rhonchi noted in both lung restrepo. ABDOMEN: Soft. The patient is tender in the right lower quadrant region. No masses felt. EXTREMITIES: No evidence of edema. CENTRAL NERVOUS SYSTEM: No obvious focal deficits noted. IMAGING AND LABORATORY DATA: WBC is 5.64, hematocrit is 48.5, with a platelet count of 176,000. INR is 0.97. ABG 7.34/51/69/95.3%. Sodium is 141, potassium 4.2, chloride is 102, bicarb is 28, BUN is 12, creatinine is 1.3. X-ray of the chest shows evidence of COPD. EKG shows normal sinus rhythm, cannot rule out anterior infarct, nonspecific T-wave abnormalities. ASSESSMENT AND PLAN: 1. Chronic obstructive pulmonary disease exacerbation. Maintain the patient on oxygen supplementation, nebulized bronchodilators, steroids, as well as antibiotics. 2. Acute kidney injury. Maintain the patient on intravenous fluids. Follow up on renal function. Avoid nephrotoxic agents. 3. Right lower quadrant abdominal pains. Will obtain a CT scan of the abdomen and pelvis. 4. Tobacco use history. Recommend nicotine patch. 5. Chronic low back pain. Analgesic as needed. 6. Deep vein thrombosis prophylaxis. Lovenox. 7. Gastrointestinal prophylaxis. Proton pump inhibitor. cc: Yossi Mata MD
[2019-05-06] MEDS: SOLU-MEDROL IV SCH ×2 (09:53→15:50)
[2019-05-06] MEDS: NORCO-10 PO SCH ×3 (09:57→20:49)
[2019-05-06] MEDS: NEURONTIN PO SCH ×3 (09:57→20:49)
[2019-05-06] MEDS: PRILOSEC PO SCH (10:02)
[2019-05-06] MEDS: NS 1,000 ML IV SCH ×2 (10:03→20:49)
[2019-05-06 10:50] LABS: CK INDEX 4.3 (0.0-2.5); CK-MB 9.29 ng/mL (0.0-5.0)
[2019-05-06 12:09] LABS: URINE SOURCE CLEAN CATCH
[2019-05-06 12:22] LABS: BILIRUBIN URINE NEGATIVE (NEGATIVE); BLOOD URINE TRACE (NEGATIVE); COLOR YELLOW; GLUCOSE URINE 500 mg/dL (NEGATIVE); KETONE URINE TRACE mg/dL (NEGATIVE); LEUKOCYTES URINE NEGATIVE (NEGATIVE); NITRITE URINE NEGATIVE (NEGATIVE); PH URINE 5.5; PROTEIN URINE NEGATIVE (NEGATIVE); SP GRAVITY URINE 1.023; TURBIDITY URINE CLEAR (CLEAR); UR EPITHELIAL CELLS <10 /HPF (<10); URINE BACTERIA NEGATIVE /HPF; URINE RBC <10 /HPF (<10); URINE WBC <10 /HPF (<10); UROBILINOGEN URINE NORMAL (NORMAL)
--- NOTE | 2019-05-06 15:20 | Diag Imaging Result Doc PS360 ---
EXAM: CT ABD/PELVIS W/ORAL CONT ONLY 05/06/2019 HISTORY: abdominal pain TECHNIQUE: This exam was performed using automated exposure control, adjustment of mA or kV according to patient size, and/or use of iterative reconstruction technique. COMMENT: There are no previous studies available for comparison. Comparison is made with the previous thoracic study of 03/19/2013 where possible. There is a fibrotic or atelectatic appearing platelike opacity present in the medial posterior right lower lobe around image 24 which was not clearly present previously, otherwise there has been no significant change in the visualized portion of the chest. There are granulomata in the spleen. The stomach is somewhat distended. There are no apparent gallstones. There is no evidence of nephrolithiasis or hydronephrosis. The pancreas and adrenal glands are unremarkable and the spleen is not enlarged. There is some stool present in the colon particularly the descending colon. The aorta is not distended. The second and third portions the duodenum are somewhat distended. Otherwise the small bowel is unremarkable in appearance. Pelvis: There is oral contrast in the ascending colon. The appendix is not distended. The urinary bladder is within normal limits. There is no evidence of free fluid. There is some gas and stool in the rectum. There are postsurgical changes in the lower lumbar spine. No acute bony abnormalities are present. IMPRESSION: Distention of the abdomen and proximal duodenum of uncertain significance. The possibility of gastroparesis cannot be excluded. Mild constipation. Electronically signed by Manuel Sims 05/06/2019 3:18 PM
[2019-05-06 19:32] LABS: CK INDEX 3.6 (0.0-2.5); CK-MB 7.83 ng/mL (0.0-5.0)
[2019-05-06] MEDS ORDERED: DUONEB (A & A) ONE (23:33)
[2019-05-07] MEDS: SOLU-MEDROL IV SCH ×4 (00:05→23:14)
[2019-05-07 00:41] LABS: CK INDEX 3.1 (0.0-2.5); CK-MB 6.49 ng/mL (0.0-5.0)
[2019-05-07] MEDS: DUONEB (A & A) INH SCH ×6 (04:51→23:32)
[2019-05-07 07:23] LABS: HEMATOCRIT 42.1 % (42.0-52.0); HEMOGLOBIN 13.6 g/dL (14.0-18.0); LYMPH# 0.52 X1000 (1.2-3.4); LYMPH% 4.9 % (20.5-51.1); MCH 30.8 PG (27-31); MCHC 32.3 g/dL (33-37); MCV 95.2 FL (81-99); MONO# 0.44 X1000 (0.11-0.59); MONO% 4.2 % (1.7-9.3); MPV 10.3 FL (7.4-10.4); NEUT# 9.62 X1000 (1.4-6.5); NEUT% 90.9 % (42.2-75.2); PLT 170 X1000 (130-400); RBC 4.42 XMIL (4.7-6.1); RDW 14.1 % (11.5-14.5); WBC 10.58 X1000 (4.8-10.8)
[2019-05-07 08:03] LABS: BANDS 3 % (0-1); LYMPHS 6 % (21-51); MONO 1 % (1-9); SEGS 90 % (42-75)
[2019-05-07] MEDS: NORCO-10 PO SCH ×3 (08:10→20:49)
[2019-05-07] MEDS: NEURONTIN PO SCH ×3 (08:10→20:49)
[2019-05-07] MEDS: PRILOSEC PO SCH (08:10)
[2019-05-07 08:18] LABS: AGAP 9; ALBUMIN 3.5 g/dL (3.5-5.0); BUN 14 mg/dL (8-22); CALCIUM 8.7 mg/dL (8.8-10.2); CHLORIDE 104 mmol/L (98-107); COSMO 282; CREATININE 0.8 mg/dL (0.7-1.2); ESTIMATED GFR > 60; GLUCOSE 144 mg/dL (70-104); POTASSIUM 4.2 mmol/L (3.5-5.1); SODIUM 140 mmol/L (136-145); TCO2 27 mmol/L (25-35)
[2019-05-07] MEDS ORDERED: LEVAQUIN 750 MG/D5W 750 MG/150 ML IVPB IV SCH (09:00)
[2019-05-07] MEDS ORDERED: LOVENOX SUBQ SCH (09:00)
[2019-05-07] MEDS ORDERED: SODIUM PHOSPHATE 35 MMOL in NS 250 ML IV ONE (13:30)
--- NOTE | 2019-05-07 13:52 | PROGRESS NOTE ---
DATE: 05/07/2019 SUBJECTIVE: The patient reports breathing better. Abdominal pain is gone. No other issues noted. OBJECTIVE: Vital Signs: Temperature 97.9 degrees, heart rate of 87, respiratory rate 16, blood pressure 152/71, O2 saturation 97% on 3 L nasal cannula. General: This is a 51-year-old male, lying in bed, in no acute distress. Cardiovascular: S1, S2 heard. No murmurs, gallops, or rubs. Regular rate and rhythm. Respiratory: Minimal wheezing. Rhonchi in both pulmonary bases. Patient is not using any accessory muscles or having work of breathing. Abdomen: Soft. Mildly tender to palpation around the periumbilical area but no signs of peritoneal irritation. No organomegaly. Extremities: No clubbing, cyanosis, or edema. Peripheral pulses present in both legs. Neurological: Patient is alert and oriented x3. Moves 4 extremities. LABORATORY DATA: Reviewed. Phosphorus 2.0. ASSESSMENT AND PLAN: 1. Acute respiratory failure secondary to chronic obstructive pulmonary disease exacerbation. We will continue with oxygen supplementation, DuoNeb every 4 hours. Clinically, this patient is feeling better, so we will continue with the same management. 2. Acute kidney injury. The patient has been placed on IV fluids since admission, and that problem is completely resolved now. 3. Abdominal pain. That condition is resolved. There is some abdominal distention but nonspecific. I think to complete a workup for abdominal pain, we will do an abdominal ultrasound. We will see what it shows. 4. Tobacco abuse. Patient has been placed on nicotine patch and advised to stop smoking. 5. Chronic low back pain. The patient is supposed to have back surgery soon. He has been seen by a neurosurgeon. At this point, we will continue with pain medications. 6. Disposition. I think we will monitor this patient closely one more day and if he is feeling okay, we can let him go tomorrow. He is using home O2, 2 to 3 L of oxygen by nasal cannula. cc: Rajiv Sheppard MD
[2019-05-07] MEDS: NS 1,000 ML IV SCH ×2 (18:03→20:49)
[2019-05-08] MEDS: NS 1,000 ML IV SCH (03:17)
[2019-05-08] MEDS: DUONEB (A & A) INH SCH ×2 (04:06→08:16)
[2019-05-08] MEDS: PRILOSEC PO SCH (06:43)
[2019-05-08 07:32] VITALS: BP 116/74
[2019-05-08 07:42] LABS: AGAP 9; ALBUMIN 3.9 g/dL (3.5-5.0); BUN 9 mg/dL (8-22); CALCIUM 9.3 mg/dL (8.8-10.2); CHLORIDE 103 mmol/L (98-107); COSMO 278; CREATININE 0.7 mg/dL (0.7-1.2); ESTIMATED GFR > 60; GLUCOSE 124 mg/dL (70-104); PHOSPHORUS 3.5 mg/dL (2.7-4.5); POTASSIUM 4.5 mmol/L (3.5-5.1); SODIUM 139 mmol/L (136-145); TCO2 27 mmol/L (25-35)
[2019-05-08 07:50] LABS: BASO# 0.01 X1000 (0.0-0.2); BASO% 0.1 % (0.0-0.8); HEMATOCRIT 42.4 % (42.0-52.0); HEMOGLOBIN 13.6 g/dL (14.0-18.0); IMM GRAN# 0.02 X1000 (0.0-0.04); IMM GRAN% 0.2 % (0.0-0.5); LYMPH# 0.58 X1000 (1.2-3.4); LYMPH% 5.6 % (20.5-51.1); MCH 30.9 PG (27-31); MCHC 32.1 g/dL (33-37); MCV 96.4 FL (81-99); MONO# 0.44 X1000 (0.11-0.59); MONO% 4.2 % (1.7-9.3); MPV 10.1 FL (7.4-10.4); NEUT# 9.34 X1000 (1.4-6.5); NEUT% 89.9 % (42.2-75.2); PLT 178 X1000 (130-400); RDW 14.6 % (11.5-14.5); WBC 10.39 X1000 (4.8-10.8)
[2019-05-08 08:34] LABS: BANDS 6 % (0-1); LYMPHS 2 % (21-51); MONO 4 % (1-9); SEGS 86 % (42-75)
[2019-05-08] MEDS: NEURONTIN PO SCH (08:56)
[2019-05-08] MEDS: NORCO-10 PO SCH (08:56)
[2019-05-08] MEDS ORDERED: VENTOLIN HFA INH ONE (09:42)
--- NOTE | 2019-05-09 10:56 | DISCHARGE SUMMARY ---
ADMISSION DATE: 05/06/2019 DISCHARGE DATE: 05/08/2019 DIAGNOSES: 1. Acute respiratory failure secondary to chronic obstructive pulmonary disease exacerbation. 2. Acute kidney injury, resolved. 3. Right lower quadrant pains, resolved. 4. Chronic low back pain. This is stable. 5. Chronic obstructive pulmonary disease with home O2. DIAGNOSTICS: 1. 05/05/2019, chest x-ray revealed COPD. 2. CT of the abdomen and pelvis revealed distention of the abdomen and proximal duodenum of uncertain significance. The possibility of gastroparesis cannot be excluded. Mild constipation. HOSPITAL COURSE: Mr. Miguel presented to the emergency room with increasing shortness of breath. He was found to be in a COPD exacerbation. He was treated with bronchodilators and steroids as well as antibiotics. White count has remained within normal limits. He has remained afebrile. He is breathing better. He denies any shortness of breath. Abdominal pain has resolved. He diet was advanced to a regular diet. He at 100 percent of all meals served. His initial creatinine was 1.3. After hydration, creatinine is 0.8 and 0.7. DISCHARGE PHYSICAL EXAMINATION: Vital signs: Blood pressure is 116/74, heart rate of 86, respirations 20, temperature 98.1 degrees oral with O2 saturations 96 to 97 percent on 3 L nasal cannula. Cardiovascular: Regular rate and rhythm. S1 and S2 appreciated. No rubs or murmurs. Pulmonary: He does have some scant expiratory wheezing with some rhonchi in the bases that mostly clear to cough. Chest rises and falls symmetric with respiration. He has no increased work of breathing. Gastrointestinal: Abdomen is soft, nontender with bowel sounds in all 4 quadrants. Neurologic: He is alert and oriented x3. DISCHARGE MEDICATIONS: 1. Steroid Dosepak, take as directed. 2. Levaquin 750 one p.o. daily x10 days. 3. [place] 10/325 one t.i.d. 4. Gabapentin 400 mg p.o. t.i.d. 5. ProAir inhaler 2 puffs q.4-6 hours p.r.n. wheezing. 6. DuoNeb q.4 hours p.r.n. wheezing. FOLLOWUP: 1. He is to follow up with his primary care provider, Federico Winters. He needs to call in the morning to schedule an appointment to be seen in a week. 2. He has been instructed to call to be seen sooner or return to the ER for any temperature greater than 101 degrees, any chest pain, shortness of breath, any palpitations, any nausea, vomiting, diarrhea, constipation, any black or bloody vomitus or stools, any hematuria, dysuria frequency, urgency or for any questions or concerns that he may have. DISCHARGE DISPOSITION: He is being discharged home in stable condition with family members. TIME SPENT: This is a greater than 30 minute discharge. Dictated by KEYSHA Andrea for Rajiv Sheppard MD Addendum: Patient seen and examined by myself. Agree with KEYSHA note. It reflects my assessment and plan. Patient is being discharged in stable condition. Will be sent home and follow up with PCP in a week. cc: KEYSHA Andrea MD MTDD
== END 2019-05-08 09:53 | disposition home or self-care (01) | DRG 190 ==
LOC: SUPCPDRO → ED 22:07 → SUATTDRO 05-06 03:01 → EDIPHOLD 05-06 03:01 → 4N 05-06 06:55
PROVIDERS: ATTEND Internal Medicine

== ENCOUNTER 2019-06-25 10:22 | Inpatient (IN) ==
[2019-06-25] MEDS ORDERED: SOLU-MEDROL IV ONE (10:57)
[2019-06-25] MEDS ORDERED: ALBUTEROL NEB INH ONE (10:57)
[2019-06-25] MEDS ORDERED: DUONEB (A & A) INH ONE (10:57)
[2019-06-25] MEDS ORDERED: PULMICORT INH ONE (10:57)
[2019-06-25] MEDS ORDERED: ROCEPHIN 1 GM in NS 50 ML IV ONE (10:59)
--- NOTE | 2019-06-25 11:17 | Diag Imaging Result Doc PS360 ---
EXAM: CHEST-PORTABLE 06/25/2019 HISTORY: SOB TECHNIQUE: AP portable upright at 1105 COMMENT: The lungs appear to be clear. The heart and pulmonary vascularity are within normal limits. Compared to 05/05/2019 considering differences in technique there has been no significant change. IMPRESSION: Stable chest. Electronically signed by Manuel Sims 06/25/2019 11:14 AM
[2019-06-25 11:27] LABS: BASO# 0.05 X1000 (0.0-0.2); BASO% 0.7 % (0.0-0.8); EOS# 0.31 X1000 (0.0-0.7); EOS% 4.5 % (0.0-10.0); HEMATOCRIT 48.9 % (42.0-52.0); HEMOGLOBIN 15.5 g/dL (14.0-18.0); LYMPH# 1.87 X1000 (1.2-3.4); LYMPH% 26.9 % (20.5-51.1); MCH 30.8 PG (27-31); MCHC 31.7 g/dL (33-37); MONO# 0.66 X1000 (0.11-0.59); MONO% 9.5 % (1.7-9.3); MPV 9.8 FL (7.4-10.4); NEUT# 4.05 X1000 (1.4-6.5); NEUT% 58.4 % (42.2-75.2); PLT 182 X1000 (130-400); RBC 5.04 XMIL (4.7-6.1); RDW 14.3 % (11.5-14.5); WBC 6.94 X1000 (4.8-10.8)
[2019-06-25 11:35] LABS: INR 0.94; PROTIME 12.6 Seconds (11.0-16.0)
[2019-06-25 11:36] LABS: PTT 30.7 Seconds (22.3-41.8)
[2019-06-25 11:50] LABS: ALB/GLOB RATIO 1.6; ALBUMIN 4.1 g/dL (3.5-5.0); CALCIUM 8.9 mg/dL (8.8-10.2); CREATININE 1.3 mg/dL (0.7-1.2); POTASSIUM 4.7 mmol/L (3.5-5.1); TOTAL BILIRUBIN 0.22 mg/dL (0.20-1.00); TOTAL PROTEIN 6.7 g/dL (6.3-8.3)
[2019-06-25 12:11] LABS: CK INDEX 2.9 (0.0-2.5); CK-MB 7.96 ng/mL (0.0-5.0)
--- NOTE | 2019-06-25 13:37 | PROVIDER DOCUMENTATION ---
This chart was entered by Heather Ramos Scribe, acting as scribe for Dashawn Aguiar MD. HPI-Respiratory General - General Stated Complaint: SOB Time Seen by Provider: 06/25/19 10:50 Source: patient Allergies/Adverse Reactions: Patient Allergies Allergy/AdvReac Type Severity Reaction Status Date / Time No Known Allergies Allergy Verified 06/25/19 11:25 Home Medications: Home Medication List Medication Instructions Recorded Confirmed Last Taken Type Hydrocodone/Acetaminophen [[place] 1 each PO TID 02/18/14 05/05/19 05/05/19 19:00 History 10-325 Tablet] Gabapentin 400 mg PO TID 04/28/18 05/05/19 05/04/19 21:00 History Albuterol Sulfate [Proair Hfa] 2 inh NEB Q4-6H PRN PRN 05/05/19 05/05/19 05/05/19 22:00 History Albuterol 2.5MG/Ipratrop 0.5MG 3 ml INH Q4H PRN PRN #60 neb 05/08/19 Unknown Rx [Duoneb (A & A)] Levofloxacin 750 mg PO DAILY #10 tab 05/08/19 Unknown Rx Methylprednisolone [Medrol Dosepak] 4 mg PO DIRECTED #1 pkg 05/08/19 Unknown Rx - History of Present Illness-Resp Nature of Presenting Problem: 53 yowm presents to the ed via ems with c/o worsening sob for 4 days. pt presents with a NRB on but removes when ems leaves the room. pt sts has O2 at home and uses when needed at 3 LPM via NC. pt has hx of copd and asthma and sts cold sx. pt has had intermittent chest pain with sob and sts episodes are 2 minutes in length. pt has no PCP Quality of Pain: reports: fullness Severity in ED: reports: moderate Onset/Duration: reports: 4 days ago Timing: reports: still present, intermittent Context: reports: recent URI Exposure: reports: unknown cause Cough Quality/Degree: reports: mild, dry cough Episode Frequency: frequent episodes Current Respiratory Medication Therapy: Initiated see nurses note Modifying Factors: improves with: oxygen, sitting upright. worse with: exertion, lying down Associated Symptoms: reports: chest pain/soreness, cough, nasal drainage, shortness of breath, wheezing Similar Symptoms Previously?: Yes (hx of copd and asthma) Recently seen or treated by another doctor?: No Review of Systems - Adult - REVIEW OF SYSTEMS - ADULT Constitutional: denies: chills, fever Eyes: reports: no symptoms reported Ears, Nose, Mouth & Throat: reports: see HPI, other (nasal discharge) Cardiovascular: reports: see HPI, chest pain. denies: edema, syncope Respiratory: reports: see HPI, cough, shortness of breath, wheezing Gastrointestinal: denies: diarrhea, nausea, vomiting Genitourinary: reports: no symptoms reported Musculoskeletal: reports: no symptoms reported Integumentary: reports: no symptoms reported Neurological: reports: no symptoms reported Psychiatric: reports: no symptoms reported Endocrine: reports: no symptoms reported Hematologic/Lymphatic: reports: no symptoms reported Allergic/Immunologic: reports: see HPI, asthma All Other Systems: Reviewed and Negative Past History - Adult - PAST MEDICAL HISTORY-ADULT Review of Records: reports: Old Records Reviewed, Nursing Assessment Review, Medications Reviewed, Social history reviewed & non-contributory. Major Childhood Illnesses: reports: denies history Cardiovascular: reports: denies history Respiratory: reports: asthma, COPD Gastrointestinal: reports: denies history Obstetrical/Gynecological: reports: denies history Genitourinary: reports: denies history Musculoskeletal: reports: fibromyalgia, other (herniated disc, spinal stenosis) Hand Dominance: Right Handed Neurological: reports: denies history Psychiatric: reports: anxiety Endocrine/Immune: reports: denies history Other Conditions: reports: denies history - PRIOR SURGERIES/PROCEDURES Surgical/Procedure History: reports: orthopedic (extremity) (shoulder, knee), joint replacement (shoulder Sx), back/neck, other (ACDF) - IMMUNIZATION STATUS Childhood Immunizations: NUTD, See Nurse Assessment Flu Vaccine: See Nurse Assessment - FAMILY HISTORY Family History: reviewed, not pertinent - SOCIAL HISTORY Smoking: cigarettes, less than 1 pack/day Provider spent 3-5 mins advising pt. on dangers of tobacco.: Discussed manners to quit use, and f/u contacts for add'l counseling. Substance Use: denies Alcohol Use Frequency: never Living Situation: family Physical Exam-General - PHYSICAL EXAM-ADULT Initial Vital Signs Reviewed: Yes (noted BP-139/101 RR-28 O2 sat-94% 3LPM) - CONSTITUTIONAL General Appearance: alert, mild distress, anxious, other (pt is pursed lip breathing in tripod position) - EYES Eyes: PERRL/EOMI, pink conjunctivae - HEAD, EARS, NOSE, MOUTH & THROAT HENMT: moist mucous membranes, other (nasal discharge) - NECK Neck: full range of motion, normal inspection - RESPIRATORY Respiratory: respiratory distress, accessory muscle use, wheezing (all restrepo), increased rate (28) - CARDIOVASCULAR Cardiovascular: normal peripheral pulses, regular rate, rhythm - CHEST (BREASTS) Chest/Breast: deferred - GASTROINTESTINAL (ABDOMEN) Abdominal Exam: non tender, soft - GENITOURINARY Male Genitalia: deferred Rectal Exam: deferred Hemoccult Exam: deferred - MUSCULOSKELETAL Back Exam: no CVA tenderness, no vertebral tenderness Extremity: normal range of motion, normal inspection, normal capillary refill, pelvis stable - SKIN Integumentary: normal color, normal turgor, warm/dry - NEUROLOGIC Neurologic: grossly normal - PSYCHIATRIC Psych/Mental Status: normal mood/affect, normal thought content, normal thought process, oriented x 3, anxious Progress - PLAN OF CARE/RESULTS Progress/Plan/Lab Results: Vital Signs - 8 hr 06/25/19 10:50 06/25/19 11:11 Temperature 98.6 F Pulse Rate 80 71 Respiratory Rate 28 H 20 Blood Pressure 139/101 O2 Sat by Pulse Oximetry 93 L Laboratory Results - last 24 hr 06/25/19 06/25/19 06/25/19 11:13 11:13 11:13 WBC RBC Hgb Hct MCV MCH MCHC RDW Std Deviation Plt Count MPV Immature Gran % (Auto) Neut % (Auto) Lymph % (Auto) [place] % (Auto) Eos % (Auto) Baso % (Auto) Immature Gran # (Auto) Neut # (Auto) Lymph # (Auto) [place] # (Auto) Eos # (Auto) Baso # (Auto) PT 12.6 INR 0.94 PTT (Actin FS) 30.7 D-Dimer, Quantitative 0.51 Sodium 143 Potassium 4.7 Chloride 103 Carbon Dioxide 31 Anion Gap 9 BUN 17 Creatinine 1.3 H Estimated GFR/1.73 m2 58 BUN/Creatinine Ratio 13 Glucose 102 Calculated Osmolality 287 Calcium 8.9 Total Bilirubin 0.22 AST 19 ALT 14 Alkaline Phosphatase 52 Creatine Kinase 275 H Creatine Kinase Index 2.9 H CK-MB (CK-2) 7.96 H Troponin T High Sens Total Protein 6.7 Albumin 4.1 Globulin 2.6 Albumin/Globulin Ratio 1.6 Plasma Lactate 0.5 06/25/19 06/25/19 11:13 11:13 WBC 6.94 RBC 5.04 Hgb 15.5 Hct 48.9 MCV 97.0 MCH 30.8 MCHC 31.7 L RDW Std Deviation 14.3 Plt Count 182 MPV 9.8 Immature Gran % (Auto) 0.0 Neut % (Auto) 58.4 Lymph % (Auto) 26.9 [place] % (Auto) 9.5 H Eos % (Auto) 4.5 Baso % (Auto) 0.7 Immature Gran # (Auto) 0.00 Neut # (Auto) 4.05 Lymph # (Auto) 1.87 [place] # (Auto) 0.66 H Eos # (Auto) 0.31 Baso # (Auto) 0.05 PT INR PTT (Actin FS) D-Dimer, Quantitative Sodium Potassium Chloride Carbon Dioxide Anion Gap BUN Creatinine Estimated GFR/1.73 m2 BUN/Creatinine Ratio Glucose Calculated Osmolality Calcium Total Bilirubin AST ALT Alkaline Phosphatase Creatine Kinase Creatine Kinase Index CK-MB (CK-2) Troponin T High Sens 10 Total Protein Albumin Globulin Albumin/Globulin Ratio Plasma Lactate Orders Category Date Time Status Cardiac Monitoring NOW Care 06/25/19 10:57 Active IV Insertion NOW Care 06/25/19 10:57 Completed Notify Provider of NEWS Score NOW Care 06/25/19 10:57 Active CHEST-1 VIEW [RAD] Stat Exams 06/25/19 10:57 Ordered CHEST-PORTABLE [RAD] Stat Exams 06/25/19 10:57 Completed BLOOD CULTURE [BLDCUL] Stat Lab 06/25/19 11:45 Results CBC WITH DIFF [HEME] Stat Lab 06/25/19 11:13 Completed CK PROFILE [SP CHEM] Stat Lab 06/25/19 11:13 Completed COMPREHENSIVE METABOLIC PANEL [CHEM] Stat Lab 06/25/19 11:13 Completed D-DIMER [COAG] Stat Lab 06/25/19 11:13 Completed LACTATE, PLASMA [CHEM] Lab 06/25/19 14:00 Uncollected LACTATE, PLASMA [CHEM] Lab 06/25/19 17:00 Uncollected LACTATE, PLASMA [CHEM] Q3H Lab 06/25/19 11:13 Completed PROTIME WITH INR [COAG] Stat Lab 06/25/19 11:13 Completed PTT [COAG] Stat Lab 06/25/19 11:13 Completed TROPONIN T HIGH SENSITIVITY Stat Lab 06/25/19 11:13 Completed URINALYSIS W/POSS RFLX CULT [URINALYSIS] Stat Lab 06/25/19 10:57 Uncollected Albuterol 2.5MG/Ipratrop 0.5MG [Duoneb (A & A)] Med 06/25/19 10:57 Discontinued 3 ml INH NOW ONE Albuterol [Albuterol Neb] Med 06/25/19 10:57 Discontinued 5 mg INH NOW ONE Budesonide [Pulmicort] Med 06/25/19 10:57 Discontinued 0.5 mg INH NOW ONE CefTRIAXONE [Rocephin] 1 gm Med 06/25/19 10:59 Discontinued 0.9% Sodium Chloride Inj [Ns] 50 ml IV NOW Methylprednisolone Sod Succ [Solu-Medrol] Med 06/25/19 10:57 Discontinued 125 mg IV NOW ONE Aerosol Treatments Routine Oth 06/25/19 10:58 Completed Aerosol Treatments Stat Oth 06/25/19 10:58 Completed O2 Per Protocol Stat Oth 06/25/19 10:57 Active Result Diagrams: 06/25/19 11:13 06/25/19 11:13 - REASSESSMENT Reassessment #1 Time Reassessed: 13:00 Status: improving (breath sounds are improved but still has tight BS with wh eezing) - EKG 1 Time of EKG reading by physician:: 10:52 EKG Read and Signed by:: Dashawn Aguiar EKG Interpretation (*Must complete 3 of following elements*): Abnormal Rate: 81 Rhythm: nsr [place]: normal QRS: normal MO Interval: normal ST Wave: normal Comments: anteroseptal infarct, age undetermined - XRAY 1 XRAY: Bilateral XRAY Study: Chest Impression: See EMR Report (IMPRESSION: Stable chest. Electronically signed by Manuel Sims 06/25/2019 11:14 AM 06/25/191113 Interpreting Physician: Manuel Sims MD Dictated Date/Time: 06/25/191113) - CONSULTS/PCP/HOSPITALIST Notification #1 *Consult/PCP/Hospitalist*: hospitalist dr nieto Time Discussed: 13:27 (spoke with yassine) Consult Disposition: Will see in ED, Admit Departure - Departure Date of Disposition Decision: 06/25/19 Time of Disposition Decision: 13:27 DIAGNOSIS: COPD exacerbation, Hypoxia, Tobacco abuse Disposition: ADMITTED INPATIENT 09 Certified Medical Emergency: Emergent Condition: Good Referrals and Follow-Ups: None,PCP [Primary Care Provider] - Discharge Education: Steps to Quit Smoking, [id number] - Critical Care Note This patient required my direct & personal management of CC.: No Attestation - Physician/ NBA Attestation Patient care was provided by Advanced Practice Provider:: No The physician spent face to face time with patient:: Yes Advanced Practice Provider documentation review:: Supervising physician onsite and consulted in the evaluation and care of this patient. The physician did have a face to face encounter with the patient. This chart was documented by the indicated scribe, (Heather Ramos Scribe) and accurately reflects the services I performed and decisions made by me, Dashawn Aguiar MD, as attested by the provider's signature.
[2019-06-25 14:36] LABS: URINE SOURCE CLEAN CATCH
--- NOTE | 2019-06-25 14:41 | HISTORY AND PHYSICAL ---
PRIMARY CARE PHYSICIAN: Listed as none. CHIEF COMPLAINT: Shortness of breath over the past 4 days that has progressively worsened despite using his O2 at home at 3 L via nasal cannula. HISTORY OF PRESENTING ILLNESS: This is a 53-year-old male who presents to [facility] via EMS with a 4-day history of worsening shortness of breath. States he used his O2 at home at 3 L via nasal cannula and his breathing treatments without any improvement in his symptoms. He is noted to be a half a pack a day smoker, but has not smoked any this week due to his worsening shortness of breath. Workup in the emergency room showed an O2 saturation on room air of 93%. His chest x-ray showed a stable chest. He is noted to have inspiratory and expiratory wheezing and this certainly appears to be an acute COPD exacerbation, so he will be admitted for further evaluation and treatment. PAST MEDICAL HISTORY: COPD, asthma, fibromyalgia, anxiety. PAST SURGICAL HISTORY: Shoulder surgery, knee surgery, back surgery, and ACDF placement. FAMILY HISTORY: Noncontributory and reviewed. SOCIAL HISTORY: Currently lives with family. Smokes a half a pack of cigarettes a day and denies any alcohol or illicit drug use. ALLERGIES: He has no known drug allergies. HOME MEDICATIONS: We will need to obtain a current list, reconcile, review and restart as appropriate. We will place an order for nursing to update and confirm home medications. LABORATORY DATA: Showed a white blood cell count of 6.94, hemoglobin 15.5, hematocrit 48.9, platelets 182,000. CT and INR of 12.6 and 0.94, with a D-dimer of 0.51. Sodium 143, potassium 4.7, chloride 103, CO2 31, BUN of 17, creatinine 1.3, glucose 102. Creatine kinase of 275, CK-MB of 7.96 with a troponin T high-sensitivity of 10. Plasma lactate was 0.5. Chest x-ray showed a stable chest. REVIEW OF SYSTEMS: He denied any fever, chills, blurred vision, dizziness. He had shortness of breath worse with exertion. Denied any chest pain or cough. Denied any abdominal pain, constipation, diarrhea, burning or hurting with urination. PHYSICAL EXAMINATION: VITAL SIGNS: On arrival he had a temperature of 98.6 degrees, pulse 80, respirations 20, blood pressure 139/101. Saturating 93% on room air. GENERAL: This is a 53-year-old male who is lying in the bed and answers questions appropriately. HEENT: Normocephalic, atraumatic. Normal ENT inspection. Oropharynx and nares are clear. EYES: Pupils are equal, round, reactive to light and accommodation. Extraocular movements are intact. NECK: Normal inspection. Normal range of motion. LUNGS: With expiratory and inspiratory wheezing bilaterally, equal lung expansion. Chest wall movement noted. O2 via nasal cannula currently in use. HEART: Regular rate and rhythm. No murmurs, rubs, or gallops. ABDOMEN: Soft, nontender, nondistended. Bowel sounds are present x4 quadrants. MUSCULOSKELETAL: He has 5/5 strength x4 extremities. NEUROLOGICAL: The cranial nerves 2-12 appear grossly intact. ASSESSMENT: 1. An acute chronic obstructive pulmonary disease exacerbation. 2. Acute kidney injury, mild. 3. Tobacco abuse. 4. Fibromyalgia. PLAN: He will be admitted to the medical unit. Placed on telemetry, O2 per protocol. Incentive spirometry. Regular diet. Turn cough and deep breathe q.[address] on azithromycin 500 mg IV q.24, Rocephin 1 gram IV q.24, normal saline at 75 mL an hour, Solu-Medrol 80 mg IV q.8h and wean as he improves. DuoNeb q.4 hours, Lovenox 40 mg subcutaneous q.24 for DVT prophylaxis, nicotine patch 14 mg transdermally daily. Recheck CBC, BMP in the a.m. Discussed smoking cessation with this patient who verbalized understanding. Dictated by KEYSHA Peraza for Manuel Bonds MD cc: KEYSHA Peraza MD
[2019-06-25 14:44] LABS: BILIRUBIN URINE NEGATIVE (NEGATIVE); BLOOD URINE NEGATIVE (NEGATIVE); COLOR YELLOW; GLUCOSE URINE NEGATIVE (NEGATIVE); KETONE URINE NEGATIVE (NEGATIVE); LEUKOCYTES URINE NEGATIVE (NEGATIVE); NITRITE URINE NEGATIVE (NEGATIVE); PROTEIN URINE TRACE mg/dL (NEGATIVE); SP GRAVITY URINE 1.024; TURBIDITY URINE CLEAR (CLEAR); UROBILINOGEN URINE NORMAL (NORMAL)
[2019-06-25 14:45] LABS: UR EPITHELIAL CELLS <10 /HPF (<10); URINE BACTERIA NEGATIVE /HPF; URINE RBC <10 /HPF (<10); URINE WBC <10 /HPF (<10)
[2019-06-25] MEDS ORDERED: ZOFRAN IV PRN (15:58)
[2019-06-25] MEDS ORDERED: ZITHROMAX 500 MG/NS 500 MG/250 ML IVPB IV SCH (16:00)
[2019-06-25] MEDS: DUONEB (A & A) INH SCH ×3 (16:27→23:50)
--- NOTE | 2019-06-25 16:35 | EKG Report ---
Test Performed on : 06/25/2019 10:52:20 AM Test Reason : SOB Blood Pressure : / mmHG Vent. Rate : 081 BPM Atrial Rate : 081 BPM P-R Int : 142 ms QRS Dur : 090 ms QT Int : 384 ms P-R-T Axes : 086 027 081 degrees QTc Int : 446 ms Normal sinus rhythm. Anteroseptal infarct (cited on or before 19-JAN-2019) Abnormal ECG When compared with ECG of 05-MAY-2019 23:00, (Unconfirmed) Questionable change in initial forces of Septal leads Nonspecific T wave abnormality, improved in Lateral leads Unconfirmed Result
[2019-06-25] MEDS: NICODERM PATCH TD SCH (16:39)
[2019-06-25] MEDS: NS 1,000 ML IV SCH (16:40)
[2019-06-25] MEDS ORDERED: LOVENOX SUBQ SCH (18:00)
[2019-06-25] MEDS: SOLU-MEDROL IV SCH (20:14)
[2019-06-26] MEDS: DUONEB (A & A) INH SCH ×4 (03:40→15:48)
--- NOTE | 2019-06-26 04:59 | HISTORY AND PHYSICAL ---
ADDENDUM: The patient was admitted for wheezing and shortness of breath that has been going on for several days. He was felt to have a COPD exacerbation. We will continue treatment with DuoNeb's, Omnicef, azithromycin, and Solu-Medrol. Chest x-ray does not show any evidence of acute infiltrate. We will continue to treat as COPD exacerbation. cc: Manuel Bonds MD
[2019-06-26] MEDS: NS 1,000 ML IV SCH (05:06)
[2019-06-26] MEDS: SOLU-MEDROL IV SCH ×2 (05:06→15:55)
[2019-06-26 07:46] LABS: HEMATOCRIT 44.1 % (42.0-52.0); HEMOGLOBIN 14.2 g/dL (14.0-18.0); LYMPH# 0.53 X1000 (1.2-3.4); LYMPH% 6.5 % (20.5-51.1); MCH 30.5 PG (27-31); MCHC 32.2 g/dL (33-37); MCV 94.8 FL (81-99); MONO# 0.15 X1000 (0.11-0.59); MONO% 1.8 % (1.7-9.3); MPV 9.9 FL (7.4-10.4); NEUT# 7.53 X1000 (1.4-6.5); NEUT% 91.7 % (42.2-75.2); PLT 169 X1000 (130-400); RBC 4.65 XMIL (4.7-6.1); RDW 13.6 % (11.5-14.5); WBC 8.21 X1000 (4.8-10.8)
[2019-06-26 08:03] LABS: AGAP 9; BUN 12 mg/dL (8-22); CALCIUM 8.8 mg/dL (8.8-10.2); CHLORIDE 101 mmol/L (98-107); COSMO 277; CREATININE 0.7 mg/dL (0.7-1.2); ESTIMATED GFR > 60; GLUCOSE 132 mg/dL (70-104); POTASSIUM 4.1 mmol/L (3.5-5.1); SODIUM 138 mmol/L (136-145); TCO2 28 mmol/L (25-35)
[2019-06-26] MEDS: NORCO-10 PO SCH ×2 (08:16→15:54)
[2019-06-26] MEDS: NICODERM PATCH TD SCH (08:16)
[2019-06-26] MEDS: NEURONTIN PO SCH ×2 (08:17→15:54)
[2019-06-26 08:23] LABS: LYMPHS 6 % (21-51); MONO 2 % (1-9); SEGS 92 % (42-75)
[2019-06-26] MEDS ORDERED: ROCEPHIN 1 GM in NS 50 ML IV SCH (13:00)
[2019-06-26 15:42] VITALS: BP 118/62
--- NOTE | 2019-07-23 19:49 | DISCHARGE SUMMARY ---
ADMISSION DATE: 06/25/2019 DISCHARGE DATE: 06/26/2019 DISCHARGE DIAGNOSES: 1. Chronic obstructive pulmonary disease exacerbation. 2. Tobacco abuse. 3. Acute kidney injury. HISTORY OF PRESENT ILLNESS: Briefly, this is a 53-year-old male presenting with cough and shortness of breath. He is on home oxygen already. He continues to be half a pack a day smoker. He had some wheezing. He was placed on azithromycin, Rocephin, Solu-Medrol, and breathing treatments. He was initially seen in the ER on the . We saw him later that day. Then, on the , patient was felt to be improved. He already had home oxygen and he was discharged in stable condition. DISCHARGE MEDS: Gabapentin 400 t.i.d., [place] p.r.n., ProAir q.4-6, DuoNeb q.4, Omnicef 300 p.o. b.i.d. that was for 7 days, prednisone taper that was over 12 days and then Symbicort was a new medication because he did not have any long-term LABA's. He was follow up with his PCP in 1 to 2 weeks. Return for worsening shortness of breath and consider completely stopping smoking as well. cc: Manuel Bonds MD
== END 2019-06-26 17:32 | disposition home or self-care (01) | DRG 191 ==
LOC: SUPCPDRO → ED 10:22 → EDIPHOLD 14:24 → 4N 17:12
PROVIDERS: ATTEND Internal Medicine